=== PATIENT | female | born 1960 ===

== ENCOUNTER 2022-02-19 09:06 | Outpatient (CLI) | payer OTHER | END 2022-02-19 09:45 | disposition home or self-care (01) | LOC: LAB 09:06 → EDBD 09:06 → LAB 09:45 | PROVIDERS: ATTEND Internal Medicine Hematology & Oncology | DX: D50.8 Other iron deficiency anemias (principal); R79.9 Abnormal finding of blood chemistry, unspecified; I10 Essential (primary) hypertension; R74.02 Elevation of levels of lactic acid dehydrogenase [LDH]; K76.89 Other specified diseases of liver; D51.1 Vitamin B12 deficiency anemia due to selective vitamin B12 malabsorption with proteinuria; D51.0 Vitamin B12 deficiency anemia due to intrinsic factor deficiency; E03.8 Other specified hypothyroidism; E06.3 Autoimmune thyroiditis; D72.818 Other decreased white blood cell count; E78.2 Mixed hyperlipidemia ==